=== PATIENT | female | born 1980 | race Caucasian/White ===

== ENCOUNTER 2018-12-31 11:15 | Observation (INO) | payer OTHER ==
[~2018-12-31] VITALS: Ht 167.6 cm; Wt 88.0 kg
== END 2018-12-31 12:30 | disposition home or self-care (01) ==
LOC: SPU 11:15
PROVIDERS: ADMIT Specialist; ATTEND Specialist
DX: O30.003 Twin pregnancy, unspecified number of placenta and unspecified number of amniotic sacs, third trimester (principal); O36.8130 Decreased fetal movements, third trimester, not applicable or unspecified; Z3A.35 35 weeks gestation of pregnancy
CPT/HCPCS: 59025; G0378

== ENCOUNTER 2019-01-04 09:35 | Inpatient (IN) | payer OTHER ==
[~2019-01-04] VITALS: Ht 167.6 cm; Wt 88.0 kg
[2019-01-04] MEDS ORDERED: LR 1,000 ML IV ONE (09:53)
[2019-01-04] MEDS ORDERED: CEFAZOLIN 2 GM IVPB PREMIX 50 ML IV ONE (10:00)
[2019-01-04] MEDS ORDERED: METOCLOPRAMIDE HCL 10 MG/2 ML VIAL IVP ONE (10:00)
[2019-01-04] MEDS ORDERED: CITRIC ACID/SODIUM CITRATE 30 ML UDC PO ONE (10:00)
[2019-01-04 10:34] LABS: RED BLOOD CELL COUNT(AUTO) 3.86 MIL/uL (4.2-6.2); WHITE BLOOD COUNT (AUTO) 9.2 K/uL (4.8-10.8)
[2019-01-04 10:35] LABS: BASOPHILS % (AUTO) 0.3 % (0.0-2.0); BILIRUBIN,URINE NEGATIVE (NEGATIVE); BLOOD, URINE NEGATIVE (NEGATIVE); COLOR,URINE YELLOW (YELLOW); EOSINOPHILS % (AUTO) 0.6 % (0.0-4.0); GLUCOSE,URINE NEGATIVE (NEGATIVE); HEMATOCRIT 34.9 % (36-48); HEMOGLOBIN 11.8 g/dL (12.0-16.0); KETONES,URINE NEGATIVE (NEGATIVE); LEUKOCYTE ESTERASE ,URINE TRACE (NEGATIVE); LYMPHOCYTES % (AUTO) 20.6 % (20.5-51.5); MEAN CORPUSCULAR HEMOGLOBIN 31 pg (27-31); MEAN CORPUSCULAR HGB CONC 34 % (32-36); MEAN CORPUSCULAR VOLUME 90 fL (79.0-98.0); MONOCYTES % (AUTO) 9.4 % (1.7-9.3); NEUTROPHILS % (AUTO) 69.1 % (40.0-70.0); NITRITE, URINE NEGATIVE (NEGATIVE); PH,URINE 5.5 (5.0-8.0); PLATELET COUNT (AUTO) 269 K/uL (130-430); PROTEIN URINE NEGATIVE (NEGATIVE); RED CELL DISTRIBUTION WIDTH 14.8 % (9.0-15.0); UROBILINOGEN,URINE 0.2 (0.2-1.0)
[2019-01-04 10:36] LABS: EOSINOPHILS # (AUTO) 0.1 K/uL (0.0-0.4); LYMPHOCYTES # (AUTO) 1.9 K/uL (1.0-5.5); MONOCYTES # (AUTO) 0.9 K/uL (0.0-1.0); NEUTROPHILS # (AUTO) 6.3 K/uL (1.8-7.7)
[2019-01-04 10:38] LABS: CLARITY/URINE SLIGHTLY HAZY (CLEAR)
[2019-01-04 10:42] LABS: BACTERIA,URINE FEW /HPF (None Seen); RBC,URINE 0-3 /HPF (0-3)
[2019-01-04] MEDS ORDERED: MIDAZOLAM HCL 5 MG/5 ML VIAL IVP ONE (11:00)
[2019-01-04] MEDS ORDERED: ONDANSETRON HCL 4 MG/2 ML VIAL IVP ONE (11:00)
[2019-01-04] MEDS ORDERED: NS IRRIG SOLN 1000 ML IR ONE (11:00)
[2019-01-04] MEDS ORDERED: fentaNYL CITRATE 250 MCG/5 ML AMP IV ONE (11:00)
[2019-01-04] MEDS ORDERED: MORPHINE SULFATE 10MG/10ML PF AMP EP ONE (11:00)
[2019-01-04] MEDS ORDERED: BUPIVACAINE /DEX PF 0.75% SPINAL 2 ML AMP INJ ONE (11:00)
[2019-01-04] MEDS ORDERED: ePHEDrine sulfate 50 MG/ML VIAL IVP ONE (11:00)
[2019-01-04] MEDS ORDERED: OXYTOCIN 10 UNIT/ML VIAL IV ONE (11:00)
[2019-01-04] MEDS ORDERED: LR 1,000 ML IV.SOLN IV ONE (11:00)
[2019-01-04] MEDS ORDERED: LR 500 ML IV SCH (12:02)
[2019-01-04] MEDS ORDERED: LR 1,000 ML IV SCH ×2 (12:02→12:29)
[2019-01-04] MEDS ORDERED: ONDANSETRON HCL 4 MG/2 ML VIAL IVP PRN (12:15)
[2019-01-04] MEDS ORDERED: KETOROLAC TROMETHAMINE 60 MG/2 ML VIAL IM PRN (12:15)
[2019-01-04] MEDS ORDERED: DIPHENHYDRAMINE INJ 50 MG/ML VIAL IM PRN (12:15)
[2019-01-04] MEDS ORDERED: NALOXONE HCL 0.4 MG/ML AMP (NARCAN) IVP PRN (12:15)
[2019-01-04] MEDS ORDERED: MORPHINE SULFATE 10MG/10ML PF AMP SP SCH (12:15)
[2019-01-04] MEDS ORDERED: METOCLOPRAMIDE HCL 10 MG/2 ML VIAL IVP PRN (12:15)
[2019-01-04] MEDS ORDERED: OXYTOCIN/0.9 % SODIUM CHLORIDE 1,000 ML IV ONE ×2 (12:29→12:37)
[2019-01-04] MEDS ORDERED: DIPH-TET-PERTUS Vaccine 0.5 ML VIAL (ADACEL) I.M. PRN (12:30)
[2019-01-04] MEDS ORDERED: OXYCODONE/ACETAMINOPHEN 5-325 TABLET PO PRN (12:30)
[2019-01-04] MEDS ORDERED: LANOLIN 7 GM OINT. TP PRN (12:30)
[2019-01-04] MEDS ORDERED: RHO(D) IMMUNE GLOBULIN/MALTOSE 1500 UNITS/1.3 ML (WINHRO) IM PRN (12:30)
[2019-01-04] MEDS ORDERED: MEASLES,MUMPS&RUBELLA VACC/PF 12500 UNIT/0.5 ML VIAL SUBQ PRN (12:30)
[2019-01-04] MEDS ORDERED: SENNOSIDES/DOCUSATE SODIUM 1 TAB TABLET(SENOKOT-S) PO PRN (12:30)
[2019-01-04] MEDS ORDERED: ANUSOL 1 EA SUPP.RECT (PREPARATION H) RC PRN (12:30)
[2019-01-04] MEDS ORDERED: BISACODYL 10 MG/SUPPOSITORY RC PRN (12:30)
[2019-01-04] MEDS ORDERED: HYDROcodone/ACETAMIN 5-325 MG TAB (NORCO/ VICODIN) PO PRN (12:30)
[2019-01-04] MEDS ORDERED: ONDANSETRON HCL 4 MG/2 ML VIAL ONE (12:45)
[2019-01-04] MEDS ORDERED: METOCLOPRAMIDE HCL 10 MG/2 ML VIAL ONE (13:16)
[2019-01-04] MEDS: KETOROLAC TROMETHAMINE 30 MG VIAL IVP SCH ×2 (18:10→23:51)
[2019-01-04] MEDS: CEFAZOLIN 1 GM IVPB PREMIX 50 ML IV SCH ×2 (18:10→23:51)
[2019-01-04] MEDS: SIMETHICONE 80 MG TAB.CHEW PO PRN ×2 (20:45→23:50)
[2019-01-04] MEDS ORDERED: TEMAZEPAM 15 MG CAPSULE PO PRN (21:00)
[2019-01-04 21:34] VITALS: BP_SYST 121
[2019-01-05] MEDS: SIMETHICONE 80 MG TAB.CHEW PO PRN ×2 (05:55→11:36)
[2019-01-05] MEDS: CEFAZOLIN 1 GM IVPB PREMIX 50 ML IV SCH (05:55)
[2019-01-05] MEDS: KETOROLAC TROMETHAMINE 30 MG VIAL IVP SCH ×2 (05:55→11:36)
[2019-01-05 07:05] LABS: WHITE BLOOD COUNT (AUTO) 13.9 K/uL (4.8-10.8)
[2019-01-05 07:06] LABS: HEMATOCRIT 36.8 % (36-48); HEMOGLOBIN 12.3 g/dL (12.0-16.0); MEAN CORPUSCULAR HEMOGLOBIN 30 pg (27-31); MEAN CORPUSCULAR HGB CONC 34 % (32-36); MEAN CORPUSCULAR VOLUME 90 fL (79.0-98.0); PLATELET COUNT (AUTO) 259 K/uL (130-430); RED BLOOD CELL COUNT(AUTO) 4.07 MIL/uL (4.2-6.2); RED CELL DISTRIBUTION WIDTH 14.5 % (9.0-15.0)
[2019-01-05 07:07] LABS: BASOPHILS % (AUTO) 0.2 % (0.0-2.0); EOSINOPHILS % (AUTO) 0.1 % (0.0-4.0); LYMPHOCYTES # (AUTO) 1.3 K/uL (1.0-5.5); LYMPHOCYTES % (AUTO) 9.5 % (20.5-51.5); MONOCYTES % (AUTO) 7.5 % (1.7-9.3); NEUTROPHILS # (AUTO) 11.5 K/uL (1.8-7.7); NEUTROPHILS % (AUTO) 82.7 % (40.0-70.0)
[2019-01-05] MEDS: DOCUSATE SODIUM 100 MG CAPSULE PO PRN ×2 (11:36→22:40)
[2019-01-05] MEDS: IBUPROFEN 600 MG TABLET PO SCH (17:50)
[2019-01-05] MEDS: OXYCODONE/ACETAMINOPHEN 5-325 TABLET PO PRN (22:41)
[2019-01-06] MEDS: IBUPROFEN 600 MG TABLET PO SCH ×5 (00:04→23:56)
[2019-01-06] MEDS: OXYCODONE/ACETAMINOPHEN 5-325 TABLET PO PRN ×5 (03:46→22:14)
[2019-01-06] MEDS: SIMETHICONE 80 MG TAB.CHEW PO PRN ×4 (09:05→22:15)
[2019-01-06] MEDS: DOCUSATE SODIUM 100 MG CAPSULE PO PRN ×2 (09:05→22:15)
[2019-01-07] MEDS: IBUPROFEN 600 MG TABLET PO SCH ×3 (06:01→18:02)
[2019-01-07] MEDS: DOCUSATE SODIUM 100 MG CAPSULE PO PRN ×2 (08:12→22:10)
[2019-01-07] MEDS: OXYCODONE/ACETAMINOPHEN 5-325 TABLET PO PRN ×4 (08:13→22:10)
[2019-01-07] MEDS: SIMETHICONE 80 MG TAB.CHEW PO PRN ×2 (14:21→18:02)
[2019-01-08] MEDS: IBUPROFEN 600 MG TABLET PO SCH ×3 (06:00→08:53)
[2019-01-08] MEDS: SIMETHICONE 80 MG TAB.CHEW PO PRN (08:55)
== END 2019-01-08 14:57 | disposition home or self-care (01) | DRG 787 ==
LOC: SPU 09:35
PROVIDERS: ADMIT Specialist; ATTEND Specialist
PROC: 10D00Z1 Extraction of Products of Conception, Low, Open Approach (ICD-10-PCS; principal; 2019-01-04 11:00)
PROC: 3E0234Z Introduction of Serum, Toxoid and Vaccine into Muscle, Percutaneous Approach (ICD-10-PCS; 2019-01-05)
DX: O30.043 Twin pregnancy, dichorionic/diamniotic, third trimester (principal); O41.03X0 Oligohydramnios, third trimester, not applicable or unspecified; O32.1XX2 Maternal care for breech presentation, fetus 2; O76 Abnormality in fetal heart rate and rhythm complicating labor and delivery; O26.893 Other specified pregnancy related conditions, third trimester; Z37.2 Twins, both liveborn; Z3A.36 36 weeks gestation of pregnancy; Z67.41 Type O blood, Rh negative; Z23 Encounter for immunization
CPT/HCPCS: 36415; 81000-TC; 85025; 86592; 86870; 86886; 86900; 86901; 88304; 88305; 90715; 94760; J0690; J1885; J2250; J2274; J2405; J2590; J2765; J2790; J3010; J3490; J7120